=== PATIENT | female | born 1950 | race Caucasian/White ===

== ENCOUNTER → 2022-10-09 | Outpatient (CLI) | payer MEDICARE, OTHER ==
--- NOTE | 2022-10-09 18:59 | Diagnostic Imaging Report ---
Indication: Infection of the right knee joint. Time of Exam: 2:22 PM No prior studies are available for comparison. 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 Prosthetic elements appear to be in good position without fracture or loosening. Bony structures are intact. No acute fracture is seen. No definite joint effusion is identified. Patellofemoral degenerative changes are noted. IMPRESSION: Degenerative and postoperative changes. No acute abnormality is detected. Dictated by: Dictated on workstation # [id number]
== END ==
LOC: ORTHO 15:39
PROVIDERS: ATTEND Orthopaedic Surgery
DX: M17.11 Unilateral primary osteoarthritis, right knee (principal); M00.861 Arthritis due to other bacteria, right knee; M54.50 Low back pain, unspecified; Z96.651 Presence of right artificial knee joint
CPT/HCPCS: 20610; 73564; 87070; 87205

== ENCOUNTER → 2022-11-06 | Outpatient (CLI) | payer MEDICARE ==
[~2022-11-06] MED LIST: ARIP2TAB20 PO; BUDE10.22 IH; CYCL10TA25 PO; DULO60CA59 PO; GABA300S3 PO; LORA-405 PO; LOSA50TA63 PO; MELO15TA39 PO; METO50TA15 PO; OXYC-556 PO; TRAZ150T72 PO
== END ==
LOC: ORTHO 10:58
PROVIDERS: ATTEND Orthopaedic Surgery
DX: M71.161 Other infective bursitis, right knee (principal); Z96.651 Presence of right artificial knee joint
CPT/HCPCS: 99213

== ENCOUNTER 2022-11-07 05:52 | Outpatient (CLI) | payer MEDICARE ==
[~2022-11-07] VITALS: Ht 172.7 cm; Wt 101.1 kg
[2022-11-07] MEDS ORDERED: LORA-405 PO (18:22)
[2022-11-07] MEDS ORDERED: MELO15TA39 PO (18:22)
[2022-11-07] MEDS ORDERED: GABA300S3 PO (18:22)
[2022-11-07] MEDS ORDERED: LOSA50TA63 PO (18:22)
[2022-11-07] MEDS ORDERED: CYCL10TA25 PO (18:22)
[2022-11-07] MEDS ORDERED: DULO60CA59 PO (18:22)
[2022-11-07] MEDS ORDERED: ARIP2TAB20 PO (18:22)
[2022-11-07] MEDS ORDERED: TRAZ150T72 PO (18:24)
[2022-11-07] MEDS ORDERED: BUDE10.22 IH (18:24)
[2022-11-07] MEDS ORDERED: OXYC-556 PO (18:24)
[2022-11-07] MEDS ORDERED: METO50TA15 PO (18:24)
== END 2022-11-07 18:28 | disposition home or self-care (01) ==
LOC: PREOP 05:52
PROVIDERS: ATTEND Orthopaedic Surgery
DX: Z01.818 Encounter for other preprocedural examination (principal)

== ENCOUNTER 2022-11-09 09:41 | Day surgery (SDC) | payer MEDICARE ==
[~2022-11-09] VITALS: Ht 162.6 cm; Wt 101.1 kg
[2022-11-09] VITALS (12 sets, daily range): BP systolic 121–181; BP diastolic 75–105
[2022-11-09] MEDS: LACTATED RINGERS 1,000 ML IV PRN ×2 (10:11→13:17)
[2022-11-09] MEDS ORDERED: LACTATED RINGERS 1,000 ML IV PRN (10:15)
[2022-11-09] MEDS ORDERED: fentaNYL INJ 100 MCG/2 ML AMP ONE (11:25)
[2022-11-09] MEDS ORDERED: proPOfol 200 MG/20 ML (DIPRIVAN) VIAL IV ONE (11:25)
[2022-11-09] MEDS ORDERED: ONDANSETRON 4 MG/2 ML (SDV) Z0FRAN ONE (11:25)
[2022-11-09] MEDS ORDERED: LIDOCAINE PF 2% 5 ML (XYLOCAINE) VIAL ONE (11:25)
--- NOTE | 2022-11-09 11:40 | Progress Note-Pre Operative ---
Pre-Operative Progress Note Date of Available H&P: November 06, 2022 Date H&P Reviewed: Nov 09, 2022 Time H&P Reviewed: 11:30 History & Physical: H&P Reviewed, Patient Examed, No changes noted Pre-Operative Diagnosis: Right Knee Prepatellar Bursitis WILFREDO BAUMAN MD Nov 09, 2022 11:40
[2022-11-09] MEDS ORDERED: SEVOFLURANE (ULTANE) 15 ML INHAL SOLN ONE (12:35)
--- NOTE | 2022-11-09 12:43 | Operative Report - Ortho ---
Operative Report Surgeon (s)/Box Office Attendant (s) Surgeon WILFREDO BAUMAN MD Box Office Attendant n/a Pre-Operative Diagnosis Right Knee Prepatellar Bursitis Post-Operative Diagnosis same Operative Report Date of Procedure: Nov 09, 2022 Name of Procedure Performed: Incision and Drainage of Right Knee Prepatellar Bursa Description & Findings After obtaining informed consent and marking the patient in the preoperative holding area, patient was taken to the operating room and anesthesia was induced. Surgical timeout was taken. The right lower extremity was prepped and draped in the usual sterile fashion. Incision was made above and below the area of abscess. [place] was used to excise devitalized tissue at the drainage spot of the abscess. Swab culture was obtained. Blunt dissection was performed to open the prepatellar bursa to areas of preformed pockets. Pulsatile lavage was used to deliver 3 L of normal saline. Wound was explored further and demonstrated soft tissue coverage of prior total knee throughout. Additional 6 L of normal saline was irrigated. Post irrigation swab was obtained and sent. [place] were used to close the incised scar line. 1/2" iodoform gauze was used to pack the wound. Knee was dressed with 4x4s, ABD, kerlix, and marie wrap. Patient tolerated the procedure well and was stable to the recovery room. Anesthesia Type General Estimated Blood Loss minimal Packing 1/2" iodoform Specimen(s) collected/removed Swabs x2 WILFREDO BAUMAN MD Nov 09, 2022 12:43
[2022-11-09] MEDS ORDERED: LNZ600T PO (12:46)
[2022-11-09] MEDS ORDERED: morphine INJ 10 MG/ML 1ML (SYR OR VIAL) ONE (12:57)
[2022-11-09] MEDS ORDERED: morphine INJ 10 MG/ML 1ML (SYR OR VIAL) IVP ONE (13:00)
--- NOTE | 2022-11-09 13:36 | Anesthesia-General Post-Op ---
General Patient Condition Mental Status/LOC: Same as Preop Cardiovascular: Satisfactory Nausea/Vomiting: Absent Respiratory: Satisfactory Pain: Controlled Complications: Absent Post Op Complications Complications None Follow Up Care/Instructions Patient Instructions None needed. Anesthesia/Patient Condition Patient Condition Patient is doing well, no complaints, stable vital signs, no apparent adverse anesthesia problems. No complications reported per nursing. MINH GONZALEZ CRNA Nov 09, 2022 13:36
== END 2022-11-09 14:50 | disposition home or self-care (01) ==
LOC: SDC 09:41
PROVIDERS: ATTEND Orthopaedic Surgery
DX: M71.161 Other infective bursitis, right knee (principal); E66.9 Obesity, unspecified; Z68.38 Body mass index [BMI] 38.0-38.9, adult; Z87.891 Personal history of nicotine dependence
CPT/HCPCS: 87070; 87075; 87077; 87081; 87101; 87186; 87205

== ENCOUNTER → 2022-11-22 | Outpatient (CLI) | payer MEDICARE ==
[~2022-11-22] MED LIST changes: +LNZ600T PO
== END ==
LOC: ORTHO 11:33
PROVIDERS: ATTEND Orthopaedic Surgery
DX: Z47.89 Encounter for other orthopedic aftercare (principal)

== ENCOUNTER → 2022-12-13 | Outpatient (CLI) | payer MEDICARE | LOC: ORTHO 10:23 | PROVIDERS: ATTEND Orthopaedic Surgery | DX: Z47.89 Encounter for other orthopedic aftercare (principal) ==

== ENCOUNTER → 2022-12-27 | Outpatient (CLI) | payer MEDICARE | LOC: ORTHO 10:47 | PROVIDERS: ATTEND Orthopaedic Surgery | DX: Z98.890 Other specified postprocedural states (principal) ==